=== PATIENT | female | born 1955 | race Caucasian/White ===

== ENCOUNTER 2023-12-17 10:40 | Emergency (ER) | payer MEDICARE, SELFPAY ==
[2023-12-17 10:43] VITALS: BP 167/91
--- NOTE | 2023-12-17 12:37 | ED.GENMED ---
History of Present Illness
General
Chief Complaint: Facial Problem
Time Seen by Provider: 12/17/23 12:07
Travel History
Have you had any contact with someone who has COVID-19?: No
Do you have any symptoms of coronavirus? Fever > 100 degrees, chills, cough, shortness of breath, sore throat, loss of taste or smell, muscle aches, or headache?: No
History of Present Illness
History of Present Illness:
68-year-old female presents to the emergency department for evaluation of headache and left facial tingling beginning yesterday. Describes the headache as a bandlike headache involving the forehead and occiput but unilateral to the left, facial
tingling was associated with this however both symptoms seem to improve after taking ibuprofen. She woke with similar symptoms this morning and took another 600 mg of ibuprofen, the headache remains however the facial tingling has resolved. She
denies any vision changes, neck pain, speech difficulty, extremity weakness or paresthesias. She has no chronic medical history. Does note that she had COVID-19 approximately 3 weeks ago
Review of Systems
Review of Systems
Allergies reviewed?: Yes
All Other Systems: ROS reviewed and negative except as documented in HPI and ROS
Phy Exam
Physical Exam
Physical Exam:
GEN: Well appearing, NAD, WDWN
HEENT: Oral mucosa moist, no scleral icterus, no nasal congestion
Cardiac: Regular rate
Lung: No respiratory distress, no tachypnea
MSK: No gross deformity or injuries
Skin: Good color, no pallor or jaundice, no rashes
Neuro: AO x3; CN II-XII grossly intact. BUE strength 5/5 in all gr, sensation intact and symmetric. BLE strength 5/5 in all gr, sensation intact and symmetric. No limb ataxia x 4, normal [id number] and [id number]. Gait is steady
Psych: Calm, cooperative
Course
Orders/Labs/Results
Orders:
Orders
12/17/23 12:14
CT Head W/o Iv Contrast Urgent
Comment:
Reason For Exam: unilateral facial tingling
Vital Signs
Initial and Last Documented VS:
Initial Vital Signs
Temp Pulse Resp BP Pulse Ox
98 F 66 18 167/91 98
12/17/23 10:43 12/17/23 10:43 12/17/23 10:43 12/17/23 10:43 12/17/23 10:43
Last Documented Vital Signs
Temp Pulse Resp BP Pulse Ox
98 F 66 18 167/91 98
12/17/23 10:43 12/17/23 10:43 12/17/23 10:43 12/17/23 10:43 12/17/23 10:43
MDM/Problems Addressed
MDM/Problems Addressed:
CT of the head was obtained to evaluate for intracranial pathology as well as significant sinusitis given the recency of her COVID-19 illness. She is neurologically intact with no focal deficits concerning for acute stroke. Specifically no facial
weakness, given the sensation of tingling and the fact that the patient has essentially no stroke risk factors other than age, do not feel that she requires further stroke workup.
*Critical Care Note
Total Time (30-74mins, 75-104mins- exclusive of procedures): Not Applicable
ED Attending Note
-
Portions of this chart may have been created with voice recognition software.� Occasional wrong word or��sound alike� substitutions may have occurred due to the inherent limitations of voice recognition software.
Discharge Plan
Departure
Patient Disposition: Home (Routine Discharge)
Date of Disposition: 12/17/23
Time of Disposition: 12:48
Patient with high blood pressure during this ER visit?: No
Discharge Problem:
Atypical migraine
Instructions: Migraines (DC)
Referrals:
NONE,* [Family Provider] -
Activity Restrictions/Additional Instructions:
Your CT scan shows no evidence of brain abnormalities, nor evidence of sinus infection
Interventions
Interventions:
*ED COVID-19 Vaccine History Last Done: 12/17/23 10:46
== END 2023-12-17 12:50 | disposition home or self-care (01) ==
LOC: EMR 10:40
PROVIDERS: EMERGENCY PHYSICIAN Emergency Medicine
DX: G43.009 Migraine without aura, not intractable, without status migrainosus (principal)
CPT/HCPCS: 99284; 70450

== ENCOUNTER 2024-08-09 14:14 | Emergency (ER) | payer MEDICARE, SELFPAY ==
[2024-08-09 14:15] VITALS: BP 208/101
[2024-08-09 15:07] VITALS: BP 145/86
--- NOTE | 2024-08-09 15:13 | ED.GENMED ---
History of Present Illness
General
Chief Complaint: Breathing Problem
Source: patient
Exam Limitations: none
Time Seen by Provider: 08/09/24 14:38
Nursing documentation reviewed up to this point in time: agreed with
History of Present Illness
History of Present Illness:
68-year-old female without significant chronic medical conditions presenting to the emergency department today with concerns of worsening dyspnea on exertion and shortness of breath progressing over the past 2 weeks now even smaller amounts of
exertion will cause shortness of breath where she has to take a break and stop. Denies similar symptoms in the past. No history of known heart disease. Denies specific chest pain but has had some pressure-like symptoms of the chest with episodes
of shortness of breath. Denies any fevers or recent illness.
Review of Systems
Review of Systems
Allergies reviewed?: Yes
All Other Systems: ROS reviewed and negative except as documented in HPI and ROS
Phy Exam
Physical Exam
Physical Exam:
GENERAL: Alert , in no apparent distress
EYE: pupils equal and reactive
NECK: Supple, no significant adenopathy.
ENT: o/p clr, mmm.
CARDIAC: Regular rate and rhythm .
LUNGS: Clear breath sounds bilaterally, no acute respiratory distress, no wheezes/rales/rhonchi
ABDOMEN: Soft, without focal tenderness, no r/g, no cvat
NEUROLOGICAL: Alert and oriented, no focal neuro deficits
SKIN: Warm and dry, skin intact.
MUSCULOSKELETAL: No edema, well perfused.
PSYCH: Normal and appropriate interaction.
Scores
Heart Failure Risk
Heart Failure Risk Score: Not Applicable
Course
Orders/Labs/Results
Orders:
Orders
08/09/24 14:19
ECG [Electrocardiogram (*1)] Urgent
Reason for Study: Chest Pain
EKG- Treatment ONCE
08/09/24 15:12
Cardiac Monitoring- Treatment ONCE
CR Chest - 2 Views Urgent
Comment:
Reason For Exam: sob HERNANDES
08/09/24 15:40
Complete Blood Count/With Diff Urgent
Comprehensive Metabolic Panel Urgent
D-Dimer Urgent
Magnesium Urgent
NT-proBNP Urgent
TSH Urgent
Troponin I Urgent
Abnormal Lab Results
08/09/24
15:40
BUN 21 H mg/dl
(7-17)
TSH 0.31 L uIU/ml
(0.47-4.68)
08/09/24 15:40
08/09/24 15:40
Vital Signs
Initial and Last Documented VS:
Initial Vital Signs
Temp Pulse Resp BP Pulse Ox
97.9 F 76 18 208/101 99
08/09/24 14:15 08/09/24 14:15 08/09/24 14:15 08/09/24 14:15 08/09/24 14:15
Last Documented Vital Signs
Temp Pulse Resp BP Pulse Ox
97.9 F 76 18 208/101 98
08/09/24 14:15 08/09/24 14:15 08/09/24 14:15 08/09/24 14:15 08/09/24 15:08
MDM/Problems Addressed
MDM/Problems Addressed:
68-year-old female presenting to the emergency department today with concerns of worsening shortness of breath specifically with exertion some chest tightness associated. Worsening over the past 2 weeks. Upon arrival patient was hypertensive
however this improved to normal level without specific treatment. Normal heart rate and pulse ox. No active symptoms during my assessment. Assessment without acute abnormalities D-dimer negative troponin negative patient very well-appearing
throughout ER stay chest x-ray without acute abnormalities patient was walked with pulse ox staying above 96%. No obvious emergent pathology she was advised to follow closely with cardiology to ensure no cardiac etiology otherwise stable for
outpatient management return precautions given.
*Critical Care Note
Total Time (30-74mins, 75-104mins- exclusive of procedures): Not Applicable
ED Attending Note
-
Portions of this chart may have been created with voice recognition software.� Occasional wrong word or��sound alike� substitutions may have occurred due to the inherent limitations of voice recognition software.
Discharge Plan
Departure
Patient Disposition: Home (Routine Discharge)
Date of Disposition: 08/09/24
Time of Disposition: 17:10
Patient with high blood pressure during this ER visit?: No
Condition: Good
Covid-19: Not Applicable
Discharge Problem:
Shortness of breath
Instructions: *CBC Heart Failure Instructions
Prescriptions:
No Action
biotin 10 mg Tablet
10 mg PO DAILY
Theragen Tablet
1 tab PO DAILY
calcium carbonate [Calcium 600] 600 mg calcium (1,500 mg) Tablet
600 mg PO DAILY
ibuprofen [Advil] 200 mg Tablet
600 mg PO Q6HPRN PRN (Reason: mild pain)
fluticasone propionate [Flonase] 50 mcg/actuation [place],Suspension
2 spray INTRANASAL DAILY
loratadine [Claritin] 10 mg Tablet
10 mg PO DAILY
cholecalciferol (vitamin D3) [Vitamin D3] 50 mcg (2,000 unit) Tablet
50 mcg PO DAILY
Referrals:
NONE,* [Family Provider] -
Activity Restrictions/Additional Instructions:
You came to the emergency department today with concerns of shortness of breath worse with exertion. Here your workup was reassuring. Please follow closely with cardiology. Return to the emergency department any worsening, new or concerning
symptoms.
Interventions
Interventions:
*Risk Screen - Suicide Last Done: 08/09/24 15:08
*General Assessment Last Done: 08/09/24 15:08
*Neglect/Abuse Screening Last Done: 08/09/24 15:08
ED- Fall Risk Assessment Last Done: 08/09/24 15:08
*ED COVID-19 Vaccine History Last Done: 08/09/24 15:08
ED- Cardiac Assessment Last Done: 08/09/24 15:08
ED- Pulmonary Assessment Last Done: 08/09/24 15:08
Discharge Date and Time
Print Language: LIBERIAN
[2024-08-09 15:54] LABS: % Basophils 0.2 % (0-2); % Eosinophils 0.5 % (0-6); % Immature Granulocytes 0.4 % (0-0.5); % Lymphocytes 25.2 % (20.5-51.1); % Monocytes 6.1 % (1.7-9.3); % Neutrophils 67.6 % (42.2-75.2); Absolute Monocytes 0.5 10^3/uL (0.1-0.6); Absolute Neutrophils 5.5 10^3/uL (1.4-6.5); Hematocrit 41.2 % (37.0-47.0); Hemoglobin 13.9 g/dL (12.0-16.0); Mean Corp Hgb Conc. 33.7 g/dL (33.0-37.0); Mean Corpuscular Volume 85.8 fL (81.0-99.0); Mean Platelet Volume 10.2 fL (7.4-10.4); Nucleated Red Blood Cells % 0 %; Platelet Count 227 10^3/uL (130-400); Red Cell Dist. Width 12.8 % (11.5-14.5); White Blood Cell Count 8.1 10^3/uL (4.8-10.8)
[2024-08-09 16:10] VITALS: BP 127/68
[2024-08-09 16:14] LABS: ALT (SGPT) 27 U/L (0-35); AST (SGOT) 25 U/L (14-36); Albumin 4.5 g/dl (3.5-5.0); Alkaline Phosphatase 85 U/L (38-126); Blood Urea Nitrogen 21 mg/dl (7-17); Calcium 9.6 mg/dl (8.4-10.2); Carbon Dioxide 23 mmol/L (22-30); Chloride 105 mmol/L (98-107); Glucose 89 mg/dl (70-99); Potassium 4.3 mmol/L (3.5-5.1); Sodium 142 mmol/L (135-145); Total Bilirubin 0.3 mg/dl (0.2-1.3); Total Protein 6.8 g/dl (6.3-8.2); eGFR > 60.00
[2024-08-09 16:18] VITALS: BMI 31.1
[2024-08-09 16:21] LABS: D-Dimer < 0.27 ug/mlFEU (0.00-0.50)
[2024-08-09 16:22] LABS: NT-proBNP 150 pg/ml; Troponin I < 0.012 ng/ml
[2024-08-09 16:42] LABS: TSH 0.31 uIU/ml (0.47-4.68)
[2024-08-09 17:00] VITALS: BP 144/84
[2024-08-09 17:34] VITALS: BP 135/81
[2024-08-09 17:47] VITALS: BP 135/81
== END 2024-08-09 17:53 | disposition home or self-care (01) ==
LOC: EMR 14:14
PROVIDERS: Physician Assistant; EMERGENCY PHYSICIAN Emergency Medicine
DX: R06.02 Shortness of breath (principal); R03.0 Elevated blood-pressure reading, without diagnosis of hypertension
CPT/HCPCS: 99285; 71046; 80053; 83735; 83880; 84443; 84484; 85025; 85379; 93005

== ENCOUNTER → 2024-09-22 07:09 | Outpatient (REF) | payer MEDICARE, SELFPAY | LOC: HWRCS 07:09 | PROVIDERS: ATTENDING PHYSICIAN Student in an Organized Health Care Education/Training Program | DX: R06.09 Other forms of dyspnea (principal) | CPT/HCPCS: 93306 ==

== ENCOUNTER → 2024-09-24 11:18 | Outpatient (REF) | payer MEDICARE, SELFPAY | LOC: DHCBC/DCA 11:18 | PROVIDERS: ATTENDING PHYSICIAN Student in an Organized Health Care Education/Training Program | DX: R06.09 Other forms of dyspnea (principal) | CPT/HCPCS: 78452; 93017; A9500 ==

== ENCOUNTER → 2025-08-17 13:27 | Outpatient (REF) | payer MEDICARE, SELFPAY | LOC: RAD 13:27 | PROVIDERS: ATTENDING PHYSICIAN Student in an Organized Health Care Education/Training Program | DX: M25.569 Pain in unspecified knee (principal) | CPT/HCPCS: 73564 ==